=== PATIENT | female | born 1965 | race Caucasian/White ===

== ENCOUNTER 2024-10-18 20:20 | Emergency (ER) | payer OTHER ==
--- OUTSIDE RECORDS SUMMARY | 2024-10-18 20:26 | XMS REPORT | Continuity of Care Document ---
Author Name Unknown Address [address] [facility] [place] [address] [facility] Address [address] [facility] [place] [address] Care Team Providers Care Regional Climate Change Analyst Name Role Phone Shine QUINN, Bhavani Calero Primary Care [facility] TERRELL ROSA Attending Clinician Unavail able PLAB Attending Clinician Unavailable [id number] Attending Clinician Unavailable BHAVANI SALAS Attending Clinician Unavailable SONIDO WHEELER Attending Clinician Unavailable MD MOODY Attending Clinician Unavailab JAMMIE Ryoal Attending Clinician Unavailab PANCHO Fajardo Attending Clinician Unavailable LAB90 Attending Clinician Unavailable JEANCARLOS WEAVER Attending Clinician Unavailab JACKIE Reddy Attending Clinician Unavailable Jammie Tafoya MD Attending Clinician [phone] GINA LITTLE Attending Clinician Unavail able Terrell Rosa MD Attending Clinician [phone] Terry Veras MD Attending Clinician [phone] YUNIEL MEYER Attending Clinician Unav shelby [id number] Attending Clinician Unavailable CHERIE PATEL Attending Clinician Unavailable Pancho Mendez DO Attending Clinician [phone] TERRY VERAS Attending Clinician Unavailable [id number] Attending Clinician Unavailable LAB39 Attending Clinician Unavailable GRIFFIN LAY Attending Clinician Unavailab le Payers Payer Name Policy Type Policy Number Effective Date Expirati on Date Source [facility] 2019 9 [id number] 2021 00:00:00 Problems Condition Name Condition Details Condition Category Status Onset Date Resolution Date Last Treatment Date Treating Clinician Comments Source Solar purpura Solar purpura Disease Active 19 00:00: 00 Francheska Choudhury - Externa l 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 R medial back at T3 Francheska Choudhury - Externa l Other specified hypothyroi dism Other specified hypothyroi dism Disease Active 03-15 00:00: 00 Francheska Choudhury - Externa l Hypercalce joey Hypercalce joey Disease Active 03-15 00:00: 00 Francheska Choudhury - Externa l Vitamin D deficiency Vitamin D deficiency Disease Active 03-15 00:00: 00 Francheska Choudhury - Externa l Osteopenia of spine Osteopenia of spine Disease Active 03-15 00:00: 00 Francheska Choudhury - Externa l Allergies, Adverse Reactions, Alerts Allergy Name Allergy Type Status Severity Reaction(s) Onset Date Inactive Date Treating Clinician Comments Source septocai ne [Other] Propensi ty to adverse reaction s Active PALPITATIONS 2013-03 00:00: 00 This medicatio n was injected into patient's gums and caused her to have severe shaking and rapid heart beat. Francheska Ley Externa radha Codeine Propensi ty to adverse reaction s to drug Active Other 10-07 00:00: 00 Gastric upset Francheska Ley Externa l Penicill ins Propensi ty to adverse reaction s to drug Active Hives 10-07 00:00: 00 Francheska Choudhury Penicill ins Propensi ty to adverse reaction s to drug Active Hives 10-07 00:00: 00 Francheska Choudhury - Externa l Codeine Propensi ty to adverse reaction s to drug Active Other 10-07 00:00: 00 Gastric upset Francheska Choudhury - Externa l Social History Social Habit Start Date Stop Date Quantity Comments Source Gender identity Hoa filiberto Choudhury - External Sexual orientation Severino amlagon Macey - External ASSERTION Not Francheska Choudhury - External History of Occupation Francheska Choudhury - External Exposure to SARS-CoV-2 (event) Not sure Francheska eduardo Alcoholic beverage intake 2024-09-15 00:00:00 2024-09-15 00:00:00 Current non-drinker of alcohol (finding) Francheska Choudhury - External Alcohol intake 2023-06-05 00:00:00 2023-06-05 00:00:00 Current non-drinker of alcohol (finding) Francheska Choudhury - External History of Social function 2022-12-05 00:00:00 2022-12-05 00:00:00 Francheska Choudhury - External Tobacco use and exposure 2014-01-12 00:00:00 2014-01-12 00:00:00 Smokeless tobacco non-user Francheska Choudhury - External Sex 2012-03-27 19:38:59 2012-03-27 19:38:59 Female (finding) Francheska Choudhury - External Sex assigned at 1965 00:00:00 1965 00:00:00 Francheska Choudhury - External Smoking Status Start Date Stop Date Source Never smoked tobacco Francheska Choudhury - External Medications Ordered Medication Name Filled Medication Name Start Date Stop Date Current Medication? Ordering Clinician Indication Dosage Frequency Signature (SIG) Comments Components Source Ibuprofen 200 MG oral Capsule 09-15 13:57: 15 Yes 200mg Q.25D Take 1 capsule (200 mg total) by mouth every 6 hours as needed for pain. Francheska Cunningham l Otezla 30 MG oral Tablet 08-25 00:00: 00 Yes [id number] TAKE 1 TABLET TWO TIMES A DAY Francheska garcia Doxycycline Hyclate 100 MG oral Tablet 08-14 00:00: 00 09-15 00:00 :00 No [id number] 100mg Q.5D Take 1 tablet (100 mg total) by mouth 2 times daily. Francheska garcia Ibuprofen 200 MG oral Capsule 08-11 15:04: 58 Yes 200mg Q.25D Take 1 capsule (200 mg total) by mouth every 6 hours as needed for pain. Francheska garcia Albuterol HFA 108 (90 Base) MCG/ACT IN AERS 08-11 00:00: 00 Yes [id number] 2{puff} Q.25D Inhale 2 puffs into the lungs every 6 hours as needed for wheezing. Francheska garcia Pseudoeph-B romphen-DM 30-2-10 MG/5ML oral Syrup 08-11 00:00: 00 Yes [id number] 10mL Q.25D Take 10 mL by mouth 4 times daily as needed. Francheska garcia Azithromyci n 250 MG oral Tablet 08-11 00:00: 00 08-17 04:59 :00 Yes [id number] Take 2 tablets by mouth on day 1 then 1 tablet by mouth daily for 4 days thereafter .. Francheska garcia hydroCHLORO thiazide 12.5 MG oral Tablet - 00:00: 00 Yes [id number] 12.5mg QD Take 1 tablet by mouth once daily Francheska garcia Methylpredn isolone Acetate (DEPO-MEDRO L) [80 mg/ml] 06-10 10:18: 38 No [id number] 80mg 80 mg, intramuscu lar, ONCE, On Sun06/10/24 at 1015, For 1 dose Francheska garcia Ibuprofen 200 MG oral Capsule 06-10 10:05: 19 Yes 200mg Q.25D Take 1 capsule (200 mg total) by mouth every 6 hours as needed for pain. Francheska garcia Triamcinolo ne Acetonide 0.1 % mouth/throa t Paste 06-10 00:00: 00 Yes [id number] Apply to oral lesions BID. Patient has many lesions and uses much. Please dispense 2 tubes each refill. Francheska garcia Ibuprofen 200 MG oral Capsule 1-14 10:30: 04 Yes 200mg Q.25D Take 1 capsule (200 mg total) by mouth every 6 hours as needed for pain. Francheska Hawleya radha Ibuprofen 200 MG oral Capsule 2023-03 2-02 10:10: 21 Yes 200mg Q.25D Take 1 capsule (200 mg total) by mouth every 6 hours as needed for pain. Francheska garcia Ibuprofen 200 MG oral Capsule 2023-03 0- 10:01: 36 Yes 200mg Q.25D Take 1 capsule (200 mg total) by mouth every 6 hours as needed for pain. Francheska garcia Colchicine 0.6 MG oral Tablet 2023-03 0 00:00: 00 Yes [id number] .6mg QD Take 1 tablet (0.6 mg total) by mouth daily. Francheska garcia predniSONE (DELTASONE) 5 MG oral Tablet 2023-03 00:00: 00 Yes [id number] 5mg QD Take 1 tablet (5 mg total) by mouth daily. Francheska garcia Triamcinolo ne Acetonide 0.1 % mouth/throa t Paste 2023-03 0 00:00: 00 06-10 00:00 :00 No [id number] Apply to oral lesions BID. Patient has many lesions and uses much. Please dispense 2 tubes each refill. Francheska garcia SERVICING MANAGER Thyroid 90 MG oral Tablet 19 00:00: 00 Yes [id number] 90mg QD Take 1 tablet by mouth once daily Francheska garcia Colchicine 0.6 MG oral Tablet 09-09 00:00: 00 12-10 00:00 :00 No [id number] .6mg QD Take 1 tablet (0.6 mg total) by mouth daily. Francheska garcia predniSONE (DELTASONE) 5 MG oral Tablet 09-09 00:00: 00 12-10 00:00 :00 No [id number] 5mg QD Take 1 tablet (5 mg total) by mouth daily. Francheska garcia Otezla 30 MG oral Tablet 09-03 00:00: 00 Yes [id number] TAKE 1 TABLET TWO TIMES A DAY Francheska garcia hydroCHLORO thiazide 12.5 MG oral Tablet -14 00:00: 00 Yes [id number] 12.5mg QD Take 1 tablet (12.5 mg total) by mouth daily. Francheska garcia Lidocaine HCl (Lidocaine Viscous HCl) 2 % mouth/throa t Solution 07-23 00:00: 00 Yes [id number] 15 ml swish and spit every 3 hours as needed for throat pain. Francheska garcia Ibuprofen 200 MG oral Capsule 06-04 10:11: 04 Yes 200mg Q.25D Take 1 capsule (200 mg total) by mouth every 6 hours as needed for pain. Francheska garcia Ibuprofen 200 MG oral Capsule 05-28 13:29: 14 Yes 200mg Q.25D Take 1 capsule (200 mg total) by mouth every 6 hours as needed for pain. Francheska garcia Tretinoin 0.025 % apply externally Cream 05-28 00:00: 00 Yes [id number] Apply pea sized amount to face qhs for skin texture starting gradually. (For cosmesis). Francheska garcia predniSONE (DELTASONE) 5 MG oral Tablet 05-24 00:00: 00 Yes [id number] 5mg Take 1 tablet (5 mg total) by mouth daily. Francheska garcia Colchicine 0.6 MG oral Tablet 05-24 00:00: 00 Yes [id number] .6mg Take 1 tablet (0.6 mg total) by mouth daily. Francheska garcia Triamcinolo ne Acetonide 0.1 % mouth/throa t Paste 2022-03 208 00:00: 00 12-10 00:00 :00 No [id number] Apply to oral lesions BID. Patient has many lesions and uses much. Please dispense 2 tubes each refill. Francheska garcia Cyanocobala min (VITAMIN B-12) 100 MCG oral Tab 2022-03 15:06: 33 12-13 00:00 :00 No 100ug Take 1 tablet (100 mcg total) by mouth daily. Francheska garcia Ibuprofen 200 MG oral Capsule 2022-03 14:28: 15 Yes 200mg Q.25D Take 1 capsule (200 mg total) by mouth every 6 hours as needed for pain. Francheska garcia Cyclobenzap rine HCl 10 MG oral Tablet 12-08 00:00: 00 12-13 00:00 :00 No 10mg [id number] 3D Take 1 tablet (10 mg total) by mouth every 8 hours as needed. Francheska garcia Ketorolac Tromethamin e 10 MG oral Tablet 12-08 00:00: 00 12-13 00:00 :00 No TAKE 1 TABLET BY MOUTH EVERY 4 TO 6 HOURS NEEDED FOR PAIN FOR 3 DAYS. DO NOT EXCEED 4 DOSES IN 24 HOURS Francheska garcia Tamsulosin HCl 0.4 MG oral Capsule 12-08 00:00: 00 12-13 00:00 :00 No 1{capsu le} Take 1 capsule (0.4 mg total) by mouth at bedtime. Francheska garcia predniSONE (DELTASONE) 5 MG oral Tablet 12-05 00:00: 00 Yes [id number] 5mg Take 1 tablet (5 mg total) by mouth daily. Francheska garcia Colchicine 0.6 MG oral Tablet 12-05 00:00: 00 Yes [id number] .6mg Take 1 tablet (0.6 mg total) by mouth daily. Francheska garcia Thyroid (SERVICING MANAGER Thyroid) 90 MG oral Tablet 12-05 00:00: 00 Yes [id number] 90mg Take 1 tablet (90 mg total) by mouth daily. Francheska garcia Naproxen 500 MG oral Tablet 9-11 00:00: 00 Yes 500mg Q.5D Take 1 tablet (500 mg total) by mouth in the morning and 1 tablet (500 mg total) in the evening. Francheska garcia Triamcinolo ne Acetonide 0.1 % mouth/throa t Paste 8-05 00:00: 00 Yes [id number] Apply to oral lesions BID. Patient has many lesions and uses much. Please dispense 2 tubes each refill Francheska garcia Otezla 30 MG oral Tablet 7-24 00:00: 00 Yes [id number] TAKE 1 TABLET 2 TIMES A DAY Francheska garcia Cyanocobala min (VITAMIN B-12) 100 MCG oral Tab 07-20 16:00: 36 Yes 100ug Take 1 tablet (100 mcg total) by mouth daily Francheska garcia Ibuprofen 200 MG oral Capsule 07-20 16:00: 36 Yes 200mg Q.25D Take 1 capsule (200 mg total) by mouth every 6 hours as needed for pain Francheska garcia Cyanocobala min (VITAMIN B-12) 100 MCG oral Tab 05-30 10:10: 22 Yes 100ug Take 100 mcg by mouth daily Francheska garcia Ibuprofen 200 MG oral Capsule 05-30 10:10: 22 Yes 200mg Q.25D Take 200 mg by mouth every 6 hours as needed for pain Francheska garcia predniSONE (DELTASONE) 5 MG oral Tablet 05-30 00:00: 00 Yes [id number] 5mg Take 1 tablet (5 mg total) by mouth daily Francheska garcia Colchicine 0.6 MG oral Tablet 05-30 00:00: 00 Yes [id number] .6mg Take 1 tablet (0.6 mg total) by mouth daily Francheska Ley Externjyoti garcia Triamcinaparna ne Acetonide 0.1 % mouth/throa t Paste -21 00:00: 00 Yes [id number] Apply to oral lesions BID. Patient has many lesions and uses much. Please dispense 2 tubes each refill Francheska garcia SERVICING MANAGER Thyroid 90 MG oral Tablet 2- 00:00: 00 Yes Take 1 tablet by mouth once daily Francheska Hawleya radha hydroCHLORO thiazide 12.5 MG oral Tablet 2- 00:00: 00 Yes [id number] Take 1 tablet by mouth once daily Francheska garcia Colchicine 0.6 MG oral Tablet 2021-03 00:00: 00 05-30 00:00 :00 No [id number] Take 1 tablet by mouth once daily Francheska garcia predniSONE 5 MG oral Tablet 2021-03 00:00: 00 05-30 00:00 :00 No [id number] Take 1 tablet by mouth once daily Francheska Hawleya radha Cyanocobala min (VITAMIN B-12) 100 MCG oral Tab 2021-03 10:41: 55 Yes 100ug Take 100 mcg by mouth daily Francheska garcia Ibuprofen 200 MG oral Capsule 2021-03 10:41: 55 Yes 200mg Q.25D Take 200 mg by mouth every 6 hours as needed for pain Francheska garcia hydroCHLORO thiazide 12.5 MG oral Tablet 2021-03 0 00:00: 00 Yes [id number] Take 1 tablet by mouth once daily Francheska garcia Triamcinolo ne Acetonide 0.1 % mouth/throa t Paste 11-29 00:00: 00 Yes [id number] Apply to oral lesions BID. Patient has many lesions and uses much. Please dispense 2 tubes each refill Francheska garcia predniSONE 5 MG oral Tablet 8- 00:00: 00 Yes [id number] Take 1 tablet by mouth once daily Francheska garcia Apremilast (Otezla) 30 MG oral Tablet 8-04 00:00: 00 Yes [id number] 30mg Take 30 mg by mouth 2 times daily Francheska garcia SERVICING MANAGER Thyroid 90 MG oral Tablet 07-20 00:00: 00 Yes Take 1 tablet by mouth once daily Francheska Kramerkenzieneva - Externa l Cyanocobala min (VITAMIN B-12) 100 MCG oral Tab 07-11 10:40: 26 Yes 100ug Take 100 mcg by mouth daily Francheska Choudhury Zinc 10 MG mouth/throa t Lozenge 07-11 10:40: [address] in the mouth or throat Francheska Kramerkenzieneva Ibuprofen 200 MG oral Capsule 07-11 10:40: 26 Yes 200mg Q.25D Take 200 mg by mouth every 6 hours as needed for pain Francheska Sealesha VITAMIN D OR 07-11 10:40: 26 Yes Take by mouth Francheska kenzieneva predniSONE 5 MG oral Tablet 16 00:00: 00 Yes [id number] 5mg Take 1 tablet (5 mg total) by mouth daily Francheska Sealesha hydroCHLORO thiazide 12.5 MG oral Tablet 14 00:00: 00 Yes [id number] Take 1 tablet by mouth once daily Francheska alesha Methylpredn isolone Acetate (DEPO-MEDRO L) [40 mg/mL] 05-24 15:15: 00 05-24 15:17 :00 No [id number] 60mg Francheska Choudhury Cyanocobala min (VITAMIN B-12) 100 MCG oral Tab 05-24 10:04: 54 Yes 100ug Take 100 mcg by mouth daily Francheska Kramerkenzieneva Zinc 10 MG mouth/throa t Lozenge 05-24 10:04: [address] in the mouth or throat Francheska Kramerkenzieneva Ibuprofen 200 MG oral Capsule 05-24 10:04: 54 Yes 200mg Q.25D Take 200 mg by mouth every 6 hours as needed for pain Francheska Choudhury VITAMIN D OR 05-24 10:04: 54 Yes Take by mouth Francheska Sekenzieneva Triamcinolo ne Acetonide 0.1 % mouth/throa t Paste 05-24 00:00: 00 Yes [id number] Apply to oral lesions BID. Patient has many lesions and uses much. Please dispense 2 tubes each refill Francheska Choudhury Cyanocobala min (VITAMIN B-12) 100 MCG oral Tab 04-20 08:37: 30 Yes 100ug Take 100 mcg by mouth daily Francheska Choudhury Zinc 10 MG mouth/throa t Lozenge 04-20 08:37: [address] in the mouth or throat Francheska Choudhury Ibuprofen (ADVIL) 200 MG oral Cap 04-20 08:37: 30 Yes 200mg Q6H Take 200 mg by mouth every 6 hours as needed for pain Francheska Choudhury VITAMIN D OR 04-20 08:37: 30 Yes Take by mouth Francheska Choudhury Colchicine (Colcrys) 0.6 MG oral Tablet 03-29 00:00: 00 Yes [id number] .6mg Take 1 tablet (0.6 mg total) by mouth daily Francheska garcia Mupirocin (BACTROBAN) 2 % apply externally Ointment 2020-03 00:00: 00 Yes Apply 2 times daily to affected areas for 2 weeks Francheska Choudhury Clindamycin HCl 300 MG oral Capsule 2020-03 00:00: 00 03-08 05:59 :00 No 300mg Take 1 capsule (300 mg total) by mouth 2 times daily for 7 days Francheska Carolinacobala min (VITAMIN B-12) 100 MCG oral Tab 2020-03 10:27: 57 Yes 100ug Take 100 mcg by mouth daily Francheska Choudhury Ibuprofen (ADVIL) 200 MG oral Cap 2020-03 10:27: 57 Yes 200mg Q6H Take 200 mg by mouth every 6 hours as needed for pain Francheska Choudhury Zinc 10 MG mouth/throa t Lozenge 2020-03 10:27: [address] in the mouth or throat Francheska Choudhury Cyanocobala min (VITAMIN B-12) 100 MCG oral Tab 2020-03 10:26: 48 Yes 100ug Take 100 mcg by mouth daily Francheska Choudhury Zinc 10 MG mouth/throa t Lozenge 2020-03 10:26: [address] in the mouth or throat Francheska Choudhury Ibuprofen 200 MG oral Capsule 2020-03 10:26: 48 Yes 200mg Q.25D Take 1 capsule (200 mg total) by mouth every 6 hours as needed for pain. Francheska Choudhury - Externa l Thyroid ([place] Thyroid) 90 MG oral Tablet 2020-03 00:00: 00 Yes 90mg Take 1 tablet (90 mg total) by mouth daily Francheska Choudhury Cyanocobala min (VITAMIN B-12) 100 MCG oral Tab 2020-03 08:50: 50 Yes 100ug Take 100 mcg by mouth daily Franchseka Choudhury Zinc 10 MG mouth/throa t Lozenge 2020-03 08:50: [address] in the mouth or throat Francheska Choudhury Ibuprofen (ADVIL) 200 MG oral Cap 2020-03 08:50: 50 Yes 200mg Q6H Take 200 mg by mouth every 6 hours as needed for pain Francheska Choudhury Cyanocobala min (VITAMIN B-12) 100 MCG oral Tab 2020-03 14:07: 05 Yes 100ug Take 100 mcg by mouth daily Francheska Choudhury Zinc 10 MG mouth/throa t Lozenge 2020-03 14:07: [address] in the mouth or throat Francheska Choudhury Ibuprofen (ADVIL) 200 MG oral Cap 2020-03 14:07: 05 Yes 200mg Q6H Take 200 mg by mouth every 6 hours as needed for pain Francheska Choudhury predniSONE 5 MG oral Tablet 2020-03 00:00: 00 Yes [id number] 5mg Take 1 tablet (5 mg total) by mouth daily Francheska Choudhury Cyanocobala min (VITAMIN B-12) 100 MCG oral Tab 11-22 12:55: 39 Yes 100ug Take 100 mcg by mouth daily Francheska Choudhury Ibuprofen (ADVIL) 200 MG oral Cap 11-22 12:55: 39 Yes 200mg Q6H Take 200 mg by mouth every 6 hours as needed for pain Francheska Choudhury Zinc 10 MG mouth/throa t Lozenge 11-22 12:55: [address] in the mouth or throat Francheska Choudhury hydroCHLORO thiazide 12.5 MG oral Tablet 2021-0 6-29 00:00: 00 Yes [id number] Take 1 tablet by mouth once daily Francheska Choudhury Apremilast (Otezla) 30 MG oral Tablet 6-15 00:00: 00 Yes [id number] 30mg Take 30 mg by mouth 2 times daily Francheska Choudhury predniSONE 5 MG oral Tablet 3-29 00:00: 00 Yes [id number] 5mg Take 1 tablet (5 mg total) by mouth daily Francheska Choudhury methylPREDN ISolone (Medrol) 4 MG oral Tablet Therapy Pack 2- 00:00: 00 11-22 00:00 :00 No 1{packa ge} Take 1 package by mouth See Admin Instructio ns Use as directed. Francheska Choudhury Thyroid ([place] Thyroid) 120 MG oral Tab 1- 00:00: 00 Yes [id number] 1{tbl} Take 1 tablet by mouth daily Francheska Choudhury Colchicine (Colcrys) 0.6 MG oral Tab 2019-03 00:00: 00 Yes [id number] .6mg Take 1 tablet (0.6 mg total) by mouth daily Francheska Choudhury Triamcinolo ne Acetonide 0.1 % mouth/throa t Paste 2019-03 004 00:00: 00 01-11 00:00 :00 No [id number] APPLY TO ORAL ULCERS TWICE DAILY Francheska Choudhury - Externa l Benadryl 30 mL, Lidocaine Viscous HCl 30 mL, Nystatin 30 mL, KENALOG 40 mg custom mouthwash 8-31 00:00: 00 11-22 00:00 :00 No 5mL Swish and spit 5 mL 3 times daily Francheska Choudhury Valacyclovi r HCl 1 g oral Tab -06 00:00: 00 11-22 00:00 :00 No [id number] 2 tablets Q12hrs for 2-3 days for cold sore. Francheska Choudhury Baclofen 20 MG oral Tab 7-06 00:00: 00 11-22 00:00 :00 No [id number] 20mg Take 1 tablet (20 mg total) by mouth 3 times daily As needed for low back muscle spasm Francheska Choudhury Acetaminoph en 650 MG oral Tab CR 7-06 00:00: 00 11-22 00:00 :00 No [id number] 2 tablets every 8 hours as needed for pain Francheska Choudhury Lidocaine HCl (LIDOCAINE VISCOUS HCL) 2 % mouth/throa t Solution 6-16 00:00: 00 11-22 00:00 :00 No [id number] Swish and spit 10mL 3-4 times daily as needed for pain. Francheska Choudhury Immunizations Ordered Immunization Name Filled Immunization Name Date Status Comments Source Tdap- (Boostrix, Adacel) 2016-12-01 00:00:00 Completed Francheska Choudhury Tdap- (Boostrix, Adacel) 2016-12-01 00:00:00 Completed Francheska Choudhury Tdap- (Boostrix, Adacel) 2016-12-01 00:00:00 Completed Francheska Choudhury Tdap- (Boostrix, Adacel) 2016-12-01 00:00:00 Completed Francheska Choudhury Tdap- (Boostrix, Adacel) 2016-12-01 00:00:00 Completed Francheska Choudhury Tdap- (Boostrix, Adacel) 2016-12-01 00:00:00 Completed Francheska Choudhury - External Tdap- (Boostrix, Adacel) 2016-12-01 00:00:00 Completed Francheska Choudhury - External Tdap- (Boostrix, Adacel) 2016-12-01 00:00:00 Completed Francheska Kramerybold - External Tdap- (Boostrix, Adacel) 2016-12-01 00:00:00 Completed Francheska Choudhury Tdap- (Boostrix, Adacel) 2016-12-01 00:00:00 Completed Francheska Choudhury Tdap- (Boostrix, Adacel) 2016-12-01 00:00:00 Completed Francheska Choudhury Tdap- (Boostrix, Adacel) Unknown Completed Francheska Choudhury - External Tdap- (Boostrix, Adacel) Unknown Completed Francheska Choudhury - External Tdap- (Boostrix, Adacel) Unknown Completed Francheska Kramerybold - External Tdap- (Boostrix, Adacel) Unknown Completed Francheska Seybold - External Tdap- (Boostrix, Adacel) Unknown Completed Francheska Seybold - External Tdap- (Boostrix, Adacel) Unknown Completed Francheska Seybold - External Tdap- (Boostrix, Adacel) Unknown Completed Francheska Seybold - External Tdap- (Boostrix, Adacel) Unknown Completed Francheska Seybold - External Tdap- (Boostrix, Adacel) Unknown Completed Francheska Seybold - External Tdap- (Boostrix, Adacel) Unknown Completed Francheska Seybold - External Vital Signs Vital Name Observation Time Observation Value Comments S ource Systolic blood pressure 2024-09-15 15:05:00 112 mm[Hg] Francheska Seybold - External Diastolic blood pressure 2024-09-15 15:05:00 68 mm[Hg] Francheska Seybold - External Heart rate 2024-09-15 15:05:00 84 /min Francheska Seybold - External Body temperature 2024-09-15 15:05:00 36.61 Sarita Francheska Seybold - External Respiratory rate 2024-09-15 15:05:00 14 /min Francheska Seybold - External Body height 2024-09-15 15:05:00 156.2 cm Francheska Seybold - External Body weight 2024-09-15 15:05:00 61.236 kg w/shoes Francheska Seybold - External BMI 2024-09-15 15:05:00 25.09 kg/m2 Francheska Seybold - External Oxygen saturation in Arterial blood by Pulse oximetry 2024-09-15 15:05:00 97 /min Francheska Seybold - External Systolic blood pressure 2024-08-11 19:59:00 100 mm[Hg] Francheska Seybold - External Diastolic blood pressure 2024-08-11 19:59:00 68 mm[Hg] Francheska Seybold - External Heart rate 2024-08-11 19:59:00 77 /min Francheska Seybold - External Body temperature 2024-08-11 19:59:00 36.56 Sarita Francheska Seybold - External Respiratory rate 2024-08-11 19:59:00 15 /min Francheska Seybold - External Body height 2024-08-11 19:59:00 156.2 cm Francheska Banksold - External Body weight 2024-08-11 19:59:00 61.689 kg Francheska Seybold - External BMI 2024-08-11 19:59:00 25.28 kg/m2 Francheska Seybold - External Oxygen saturation in Arterial blood by Pulse oximetry 2024-08-11 19:59:00 98 /min Francheska Seybold - External Systolic blood pressure 2024-06-10 15:05:00 105 mm[Hg] Francheska Seybold - External Diastolic blood pressure 2024-06-10 15:05:00 60 mm[Hg] Francheska Seybold - External Heart rate 2024-06-10 15:05:00 72 /min rFancheska Seybold - External Respiratory rate 2024-06-10 15:05:00 16 /min Francheska Kramerybold - External Body height 2024-06-10 15:05:00 156.2 cm Francheska Seybold - External Body weight 2024-06-10 15:05:00 62.143 kg Francheska Seybold - External BMI 2024-06-10 15:05:00 25.47 kg/m2 Francheska Seybold - External Body weight 2024-03-25 16:49:00 63.05 kg Francheska Seybold - External BMI 2024-03-25 16:49:00 25.84 kg/m2 Francheska Seybold - External Body weight 2024-02-11 16:09:00 63.05 kg Francheska Seybold - External BMI 2024-02-11 16:09:00 25.84 kg/m2 Francheska Seybold - External Systolic blood pressure 2023-12-11 14:59:00 113 mm[Hg] Francheska Seybold - External Diastolic blood pressure 2023-12-11 14:59:00 66 mm[Hg] Francheska Seybold - External Heart rate 2023-12-11 14:59:00 72 /min Francheska Seybold - External Respiratory rate 2023-12-11 14:59:00 16 /min Francheska Kramerybold - External Body height 2023-12-11 14:59:00 156.2 cm Francheska Seybold - External Body weight 2023-12-11 14:59:00 63.504 kg Francheska Seybold - External BMI 2023-12-11 14:59:00 26.02 kg/m2 Francheska Seybold - External Systolic blood pressure 2023-07-24 19:22:00 108 mm[Hg] Francheska Seybold - External Diastolic blood pressure 2023-07-24 19:22:00 66 mm[Hg] Francheska Seybold - External Heart rate 2023-07-24 19:22:00 84 /min Francheska Seybold - External Body temperature 2023-07-24 19:22:00 36.78 Sarita Francheska Seybold - External Respiratory rate 2023-07-24 19:22:00 16 /min Francheska Seybold - External Body height 2023-07-24 19:22:00 157.5 cm Francheska Seybold - External Body weight 2023-07-24 19:22:00 62.596 kg w/shoes Francheska Seybold - External BMI 2023-07-24 19:22:00 25.24 kg/m2 Francheska Seybold - External Systolic blood pressure 2023-06-05 15:09:00 115 mm[Hg] Francheska Seybold - External Diastolic blood pressure 2023-06-05 15:09:00 73 mm[Hg] Francheska Seybold - External Heart rate 2023-06-05 15:09:00 74 /min Francheska Seybold - External Respiratory rate 2023-06-05 15:09:00 16 /min Francheska Seybold - External Body height 2023-06-05 15:09:00 156.2 cm Francheska Seybold - External Body weight 2023-06-05 15:09:00 60.782 kg Francheska Seybold - External BMI 2023-06-05 15:09:00 24.91 kg/m2 Francheska Seybold - External Body weight 2023-05-29 18:28:00 62.143 kg Francheska Seybold - External BMI 2023-05-29 18:28:00 25.06 kg/m2 Francheska Seybold - External Systolic blood pressure 2022-12-13 19:23:00 100 mm[Hg] Francheska Seybold - External Diastolic blood pressure 2022-12-13 19:23:00 60 mm[Hg] Francheska Seybold - External Heart rate 2022-12-13 19:23:00 70 /min Francheska Seybold - External Body temperature 2022-12-13 19:23:00 37.11 Sarita Francheska Seybold - External Respiratory rate 2022-12-13 19:23:00 18 /min Francheska Seybold - External Body height 2022-12-13 19:23:00 157.5 cm Francheska Seybold - External Body weight 2022-12-13 19:23:00 62.766 kg Francheska Seybold - External BMI 2022-12-13 19:23:00 25.31 kg/m2 Francheska Seybold - External Oxygen saturation in Arterial blood by Pulse oximetry 2022-12-13 19:23:00 99 /min Francheska Seybold - External Systolic blood pressure 2022-07-20 20:56:00 110 mm[Hg] Francheska Seybold - External Diastolic blood pressure 2022-07-20 20:56:00 72 mm[Hg] Francheska Seybold - External Heart rate 2022-07-20 20:56:00 74 /min Francheska Seybold - External Body temperature 2022-07-20 20:56:00 37 Sarita Francheska Seybold - External Respiratory rate 2022-07-20 20:56:00 14 /min Francheska Seybold - External Body height 2022-07-20 20:56:00 157.5 cm measured w/o shoes Francheska Seybold - External Body weight 2022-07-20 20:56:00 64.411 kg w/shoes Francheska Seybold - External BMI 2022-07-20 20:56:00 25.97 kg/m2 Francheska Seybold - External Oxygen saturation in Arterial blood by Pulse oximetry 2022-07-20 20:56:00 98 /min Francheska Seybold - External Systolic blood pressure 2022-05-30 15:08:00 125 mm[Hg] Francheska Seybold - External Diastolic blood pressure 2022-05-30 15:08:00 69 mm[Hg] Francheska Seybold - External Heart rate 2022-05-30 15:08:00 94 /min Francheska Seybold - External Body temperature 2022-05-30 15:08:00 36.61 Sarita Francheska Banksold - External Respiratory rate 2022-05-30 15:08:00 16 /min Francheska Kramerybold - External Body height 2022-05-30 15:08:00 156.2 cm Francheska Kramerybold - External Body weight 2022-05-30 15:08:00 65.772 kg Francheska Kramerybold - External BMI 2022-05-30 15:08:00 26.95 kg/m2 Francheska Kramerybold - External Body weight 2022-01-11 15:30:00 65.227 kg Francheska Seybold - External BMI 2022-01-11 15:30:00 26.73 kg/m2 Francheska Kramerybold - External Body weight 2021-07-11 15:39:00 61.961 kg Francheska Seybold BMI 2021-07-11 15:39:00 25.39 kg/m2 Francheska Kramerybold Systolic blood pressure 2021-05-24 15:03:00 105 mm[Hg] Francheska Seybold Diastolic blood pressure 2021-05-24 15:03:00 67 mm[Hg] Francheska Kramerybold Heart rate 2021-05-24 15:03:00 69 /min Francheska Seybold Respiratory rate 2021-05-24 15:03:00 16 /min Francheska Kramerybold Body height 2021-05-24 15:03:00 156.2 cm Francheska Kramerybneva Body weight 2021-05-24 15:03:00 60.328 kg Francheska Kramerybneva BMI 2021-05-24 15:03:00 24.72 kg/m2 Francheska Seybold Systolic blood pressure 2021-04-20 14:32:00 124 mm[Hg] Francheska Seybold Diastolic blood pressure 2021-04-20 14:32:00 58 mm[Hg] Francheska Seybold Heart rate 2021-04-20 14:32:00 68 /min Francheska Kramerybold Body temperature 2021-04-20 14:32:00 36.72 Sarita Francheska Kramerybold Respiratory rate 2021-04-20 14:32:00 14 /min Francheska Kramerybold Body height 2021-04-20 14:32:00 156.2 cm Francheska Seybold Body weight 2021-04-20 14:32:00 60.328 kg without shoes Francheska Kramerybneva BMI 2021-04-20 14:32:00 24.72 kg/m2 Francheska Seybold Systolic blood pressure 2021-02-28 18:48:00 100 mm[Hg] Francheska Seybold Diastolic blood pressure 2021-02-28 18:48:00 69 mm[Hg] Francheska Seybold Systolic blood pressure 2021-02-07 16:25:00 109 mm[Hg] Francheska Seybold Diastolic blood pressure 2021-02-07 16:25:00 67 mm[Hg] Francheska Kramerybold Heart rate 2021-02-07 16:25:00 81 /min Francheska Kramerybold Body temperature 2021-02-07 16:25:00 36.72 Sarita Francheska Kramerybold Respiratory rate 2021-02-07 16:25:00 20 /min Francheska Kramerybneva Body height 2021-02-07 16:25:00 156.2 cm Francheska Kramerybneva Body weight 2021-02-07 16:25:00 63.322 kg Francheska Seybold BMI 2021-02-07 16:25:00 25.95 kg/m2 Francheska Seybold BMI 2021-01-26 14:49:00 24.91 kg/m2 Francheska Seybold Systolic blood pressure 2021-01-26 14:49:00 95 mm[Hg] Francheska Seybold Diastolic blood pressure 2021-01-26 14:49:00 56 mm[Hg] Francheska Kramerybold Heart rate 2021-01-26 14:49:00 97 /min Francheska Kramerybold Body temperature 2021-01-26 14:49:00 36.56 Sarita Francheska Kramerybold Respiratory rate 2021-01-26 14:49:00 16 /min Francheska Kramerybold Body height 2021-01-26 14:49:00 156.2 cm Francheska Kramerybold Body weight 2021-01-26 14:49:00 60.782 kg Francheska Kramerybneva Body weight 2021-01-10 19:06:00 62.143 kg Francheska Kramerybold BMI 2021-01-10 19:06:00 25.06 kg/m2 Francheska Seybold Systolic blood pressure 2020-11-22 17:56:00 98 mm[Hg] Francheska Choudhury Diastolic blood pressure 2020-11-22 17:56:00 64 mm[Hg] Francheska Choudhury Heart rate 2020-11-22 17:56:00 64 /min Francheska Choudhury Respiratory rate 2020-11-22 17:56:00 16 /min Francheska Choudhury Body height 2020-11-22 17:56:00 157.5 cm Francheska Macey Body weight 2020-11-22 17:56:00 63.957 kg Francheska Macey BMI 2020-11-22 17:56:00 25.79 kg/m2 Francheska Choudhury Procedures Procedure Date / Time Performed Performing Clinicia n Source [facility] PATHOLOGY REPORT 2021-02-28 22:28:00 Antonio Veras in R Francheska Choudhury MAGNESIUM, SERUM 2021-01-26 15:28:00 Cherie Patel T4F 2021-01-26 15:28:00 Cherie Patel CMP14+CBC/D/PLT+TSH W/RFLX 2021-01-26 15:28:00 Cherie Patel ECG- ADULT 2021-01-26 15:00:36 Cherie Patel REFERRAL TO [facility] [place] 2021-01-25 00:00:00 Severino Tafoya Encounters Start Date/Time End Date/Time Encounter Type Admission Type Attending [facility] Care Department Encounter ID Source 2025-01-01 09:30:00 2025-01-01 09:30:00 Outpatient FRANCHESKA MAYFIELD [id number] Francheska Choudhury 2024-12-10 10:15:00 2024-12-10 10:15:00 Outpatient TERRELL ROSA [id number] Francheska Choudhury 2024-10-28 14:20:00 2024-10-28 14:20:00 Outpatient GEETHA MAYFIELD [id number] Francheska Choudhury 2024-10-28 09:00:00 2024-10-28 09:00:00 Outpatient FRANCHESKA FRANCHESKA [id number] Francheska Choudhury 2024-09-30 09:30:00 2024-09-30 09:30:00 Outpatient FRANCHESKASALINA MAYFIELD [id number] Francheska Choudhury 2024-09-15 11:10:00 2024-09-15 11:10:00 Outpatient [facility] FRANCHESKA MAYFIELD [id number] Francheska Choudhury 2024-09-15 10:00:00 2024-09-15 10:00:00 Outpatient BHAVANI SALAS FRANCHESKA [facility]FIELD [id number] Francheska Macey 2024-08-25 00:00:00 2024-08-25 00:00:00 Outpatient TERRELL ROSA [id number] Francheska [facility] 2024-08-19 00:00:00 2024-08-19 00:00:00 Outpatient SONIDO WHEELER [id number] Francheska Macey 2024-08-14 09:30:00 2024-08-14 09:30:00 Outpatient FRANCHESKA MAYFIELD [id number] Francheska Macey 2024-08-14 00:00:00 2024-08-14 00:00:00 Outpatient SONIDO WHEELER [id number] Francheska [facility] 2024-08-12 09:25:00 2024-08-12 09:25:00 Outpatient FRANCHESKA MAYFIELD [id number] Francheska neva 2024-08-12 00:00:00 2024-08-12 00:00:00 [facility] [id number] [facility]24-[facility]-12 00:00:00 2024-08-12 00:00:00 Outpatient SONIDO WHEELER [id number] [facility] 2024-08-12 00:00:00 2024-08-12 00:00:00 Outpatient MD FRANCHESKA PARK [id number] Francheska alesha 2024-08-11 14:30:00 2024-08-11 14:30:00 Outpatient SONIDO WHEELER [id number] Francheska Macey 2024-08-11 00:00:00 2024-08-11 00:00:00 Outpatient BHAVANI SALAS FRANCHESKA [facility] [id number] Francheska Choudhury 2024-07-20 00:00:00 2024-07-20 00:00:00 Outpatient BHAVANI SALAS FRANCHESKA FRANCHESKA [id number] Francheska Kramerybneva 2024-06-10 10:45:00 2024-06-10 10:45:00 Outpatient LAB47 FRANCHESKA MAYFIELD [id number] Francheska ybneva 2024-06-10 10:15:00 2024-06-10 10:15:00 Outpatient TERRELL ROSA [id number] Francheska Macey 2024-03-25 10:30:00 2024-03-25 10:30:00 Outpatient JAMMIE TAFOYA [id number] Francheska Macey 2024-03-17 00:00:00 2024-03-17 00:00:00 Outpatient TERRELL ROSA [id number] Francheska [facility] 2024-03-11 00:00:00 2024-03-11 00:00:00 Outpatient TERRELL ROSA [id number] Francheska ybneva 2024-02-11 09:45:00 2024-02-11 09:45:00 Outpatient JAMMIE TAFOYA [id number] Francheska Kramerybneva 2024-01-10 08:00:00 2024-01-10 08:00:00 Outpatient FRANCHESKA MAYFIELD [id number] Francheska ybneva 2023-12-11 10:45:00 2023-12-11 10:45:00 Outpatient LABBella MAYFIELD [id number] Francheska Seybneva 2023-12-11 10:15:00 2023-12-11 10:15:00 Outpatient TERRELL ROSA [id number] Francheska Seybneva 2023-12-03 10:00:00 2023-12-03 10:00:00 Outpatient JAMMIE TAFOYA [id number] [facility] 2023-10-27 00:00:00 2023-10-27 00:00:00 Outpatient BHAVANI SALAS FRANCHESKA [facility] [id number] Francheska ybneva 2023-09-10 00:00:00 2023-09-10 00:00:00 Outpatient TERRELL ROSA FRANCHESKA [facility] [id number] Francheska ybneva 2023-09-10 00:00:00 2023-09-10 00:00:00 Outpatient TERRELL ROSA FRANCHESKA [facility] [id number] Fracnheska ybneva 2023-09-04 00:00:00 2023-09-04 00:00:00 Outpatient ERA TERRELLSHASHANK [facility]FIELD [id number] Francheska ybneva 2023-08-01 00:00:00 2023-08-01 00:00:00 Outpatient ERNESTO SALASVENESSA MAYFIELD [id number] Francheska neva 2023-07-24 14:30:00 2023-07-24 14:30:00 Outpatient SHINE BHAVANI [facility] [id number] [facility] 2023-06-05 10:45:00 2023-06-05 10:45:00 Outpatient LAB47 FRANCHESKA MAYFIELD [id number] Francheska ybneva 2023-06-05 10:15:00 2023-06-05 10:15:00 Outpatient ERA TERRELL FRANCHESKA [facility] [id number] Francheska ybneva 2023-05-29 13:30:00 2023-05-29 13:30:00 Outpatient JAMMIE TAFOYA [id number] [facility] 2023-05-25 00:00:00 2023-05-25 00:00:00 Outpatient ROSA, TERRELL MAYFIELD [id number] Francheska ybneva 2023-05-25 00:00:00 2023-05-25 00:00:00 Outpatient ROSA, TERRELL MAYFIELD [id number] Francheska Seybold 2023-05-15 07:50:00 2023-05-15 07:50:00 Outpatient LAB47 [facility]ESKA [facility] [id number] [facility] 2023-05-06 00:00:00 2023-05-06 00:00:00 Outpatient BHAVANI SALAS FRANCHESKA [facility] [id number] Francheska Kramerybneva 2023-02-28 00:00:00 2023-02-28 00:00:00 Outpatient TERRELL ROSA FRANCHESKA [facility]FIELD [id number] Francheska Choudhury 2023-02-22 00:00:00 2023-02-22 00:00:00 Outpatient PANCHO MENDEZ FRACNHESKA [facility]FIELD [id number] Francheska Seybneva 2023-02-16 00:00:00 2023-02-16 00:00:00 Outpatient MELONIE ROSASHASHANK [facility] [id number] Francheska Sealesha 2023-02-16 00:00:00 2023-02-16 00:00:00 Outpatient MELONIE ROSASHASHANK [facility] [id number] Francheska Choudhury 2023-02-16 00:00:00 2023-02-16 00:00:00 Outpatient MELONIE ROSASHASHANK MAYFIELD [id number] Francheska Seybneva 2023-02-16 00:00:00 2023-02-16 00:00:00 Outpatient TERRELL ROSA FRANCHESKA [facility]FIELD [id number] Francheska Seybneva 2022-12-22 11:00:00 2022-12-22 11:00:00 Outpatient BHAVANI SALAS FRANCHESKA [facility] [id number] Francheska Seybneva 2022-12-13 15:40:00 2022-12-13 15:40:00 Outpatient TOM FRANCHESKA [facility] [id number] Francheska Seybold 2022-12-13 14:30:00 2022-12-13 14:30:00 Outpatient JEANCARLOS WEAVER [id number] Francheska Seybold 2022-12-13 00:00:00 2022-12-13 00:00:00 Outpatient JACKIE PHILLIPS [id number] Francheska Seybold 2022-12-05 10:00:00 2022-12-05 10:00:00 Outpatient ERA TERRELL MAYFIELD [id number] Francheska Seybold 2022-10-14 00:00:00 2022-10-14 00:00:00 Outpatient TERRELL ROSA FRANCHESKA [facility]FIELD [id number] Francheska rKamerneva 2022-10-13 00:00:00 2022-10-13 00:00:00 Outpatient TERRELL ROSA FRANCHESKA [facility] [id number] Francheska Kramerneva 2022-10-01 00:00:00 2022-10-01 00:00:00 Outpatient ERA TERRELL MAYFIELD [id number] Francheska [facility] 2022-07-20 16:00:00 2022-07-20 16:00:00 Outpatient BHAVANI SALAS FRANCHESKA [facility] [id number] Francheska [facility] 2022-05-30 10:45:00 2022-05-30 10:45:00 Outpatient LISA FRANCHESKA MAYFIELD [id number] Francheska [facility] 2022-05-30 10:15:00 2022-05-30 10:15:00 [id number] [facility] 08:20:00 2022-04-28 08:20:00 Outpatient LABBella FRANCHESKA MAYFIELD [id number] Francheska [facility] 2022-04-16 00:00:00 2022-04-16 00:00:00 Outpatient VANESSA PANCHO FRANCHESKA [facility]FIELD [id number] Francheska [facility] 2022-02-08 00:00:00 2022-02-08 00:00:00 Outpatient PANCHO MENDEZ [id number] Francheska [facility] 2022-01-27 00:00:00 2022-01-27 00:00:00 Outpatient VANESSA PANCHO [facility]KA [facility] [id number] [facility] 2022-01-11 10:15:00 2022-01-11 10:15:00 Outpatient JAMMIE TAFOYA [id number] [facility] 2021-11-29 10:00:00 2021-11-29 10:00:00 Outpatient TERRELL ROSA [id number] Francheska Seybneva 2021-10-13 00:00:00 2021-10-13 00:00:00 Outpatient TERRELL ROSA [id number] Francheska Choudhury 2021-10-13 00:00:00 2021-10-13 00:00:00 Outpatient TERRELL ROSA FRANCHESKA MAYFIELD [id number] Francheska Choudhury 2021-07-11 10:15:00 2021-07-11 10:30:00 Office Visit Jammie Tafoya MAUREEN [id number] [id number] Francheska Choudhury 2021-06-01 15:00:00 2021-06-01 15:00:00 Outpatient FRANCHESKA MAYFIELD [id number] Francheska Macey 2021-06-01 14:40:00 2021-06-01 14:40:00 Outpatient FRANCHESKA MAYFIELD [id number] Francheska Macey 2021-05-25 13:20:00 2021-05-25 13:20:00 Outpatient GINA LITTLE [id number] Francheska Macey 2021-05-24 10:00:00 2021-05-24 10:15:00 Office Visit Terrell Rosa MAUREEN [id number] Francheska Choudhury 2021-05-04 00:00:00 2021-05-04 00:00:00 Outpatient MD FRANCHESKA PARK [id number] Francheska Macey 2021-04-20 09:30:00 2021-04-20 09:30:00 Outpatient [facility] FRANCHESKA MAYFIELD [id number] Francheska Choudhury 2021-04-20 08:30:00 2021-04-20 08:30:00 Office Visit BHAVANI SALAS 1.2.840.114 [id number] Francheska alesha 2021-04-11 00:00:00 2021-04-11 00:00:00 Outpatient MD FRANCHESKA PARK [id number] Francheska Macey 2021-04-06 10:00:00 2021-04-06 10:00:00 Outpatient FRANCHESKA MAYFIELD [id number] Francheska Macey 2021-04-06 09:50:00 2021-04-06 09:50:00 Outpatient LAB FRANCHESKA MAYFIELD [id number] Francheska Choudhury 2021-03-29 00:00:00 2021-03-29 00:00:00 Outpatient TERRELL ROSA [id number] Francheska Macey 2021-03-14 00:00:00 2021-03-14 00:00:00 Outpatient MD FRANCHESKA PARK [id number] [facility] 2021-02-28 12:30:00 2021-02-28 13:30:00 Office Visit Terry Veras 1.2.840.114 [id number] Francheska [facility] 2021-02-22 13:00:00 2021-02-22 13:00:00 Outpatient YUNIEL MEYER [id number] Francheska [facility] 2021-02-22 10:20:00 2021-02-22 10:20:00 Outpatient GINA LITTLE [id number] Francheska [facility] 2021-02-16 14:00:00 2021-02-16 14:00:00 Outpatient TRED4Terri MAYFIELD [id number] Francheska [facility] 2021-02-16 00:00:00 2021-02-16 00:00:00 Outpatient CHERIE PATEL [id number] Francheska neva 2021-02-15 14:00:00 2021-02-15 14:00:00 Outpatient TRED4Terri MAYFIELD [id number] Francheska [facility] 2021-02-15 13:00:00 2021-02-15 13:00:00 Outpatient FRANCHESKA MAYFIELD [id number] Francheska Choudhury 2021-02-15 11:15:00 2021-02-15 11:15:00 Outpatient FRANCHESKA MAYFIELD [id number] Francheska Choudhury 2021-02-15 10:45:00 2021-02-15 10:45:00 Outpatient TRED47 FRANCHESKA MAYFIELD [id number] Francheska Kramerneva 2021-02-07 10:30:00 2021-02-07 10:45:00 Office Visit Pancho Mendez MAUREEN 1.2.840.114 [id number] [id number] [facility]ka [facility] 2021-01-31 00:00:00 2021-01-31 00:00:00 Outpatient PANCHO MENDEZ FRANCHESKA [facility] [id number] Francheska [facility] 2021-01-31 00:00:00 2021-01-31 00:00:00 Outpatient PANCHO MENDEZ FRANCHESKA [facility] [id number] Francheska [facility] 2021-01-28 16:00:00 2021-01-28 16:00:00 Outpatient LAB90 FRANCHESKA MAYFIELD [id number] Francheska [facility] 2021-01-26 09:25:00 2021-01-26 09:25:00 Outpatient LAB47 FRANCHESKA MAYFIELD [id number] Francheska [facility] 2021-01-26 08:30:00 2021-01-26 08:30:00 Office Visit CHERIE PATEL 1.2.840.114 [id number] [id number] Francheska [facility] 2021-01-18 00:00:00 2021-01-18 00:00:00 Outpatient RITOTERRY FRANCHESKA [facility] [id number] Francheska [facility] 2021-01-10 13:40:50 2021-01-10 13:55:50 Office Visit Shabbir Jammie MAUREEN 1.2.840.114 350.1.13.13 [id number] [id number] Francheska Kramerneva 2021-01-10 07:10:00 2021-01-10 07:10:00 Outpatient NKS00-OYH FRANCHESKA [facility]FIELD [id number] Francheska Choudhury 2020-11-22 13:45:00 2020-11-22 13:45:00 Outpatient LAB39 FRANCHESKA MAYFIELD [id number] Francheska Choudhury 2020-11-22 12:41:40 2020-11-22 12:56:40 Office Visit Terrell Rosa [facility] 1.2.840.114 [id number] [id number] Francheska Choudhury 2020-10-14 14:45:00 2020-10-14 14:45:00 Outpatient LAB47 FRANCHESKA MAYFIELD [id number] Francheska Choudhury 2020-10-14 14:15:00 2020-10-14 14:15:00 Outpatient GRIFFIN LAY [id number] Francheska Choudhury Results Test Description Test Time Test Comments Results Result Co mments Source Francheska KruegreGNESIUM, [id number] 12:12:00* Test Item Value Reference Range Interpretation Comme nts MAGNESIUM, SERUM (test code = 98844-1) 2.1 mg/dL 1.6-2.3 BUSTER (test code = BUSTER) [facility] results re ported in [place] [facility]. LCA Clinical Information:LCA Source of Specimen:Blood, venous*Venipnancy [id number] 12:12:00* Test Item Value Reference Range Interpretation Comme nts T4, FREE (DIRECT) (test code = 3024-7) 1.70 ng/dL 0.82-1.77 BUSTER (test code = BUSTER) [facility] results re ported in [place] [facility]. LCA Clinical Information:SRC:Blood, venous*Venipunc ture ? LCA Source of Specimen:Blood, venous*Venipnancy ChoudhuryECG- [id number] 21:49:24* Test Item Value Reference Range Interpretation Comme nts VENTRICULAR RATE (test code = 10737) BPM ATRIAL RATE (test code = 58474) BPM P-R INTERVAL (test code = 96702) 152 ms QRS DURATION (test code = 75672) 88 ms Q-T INTERVAL (test code = 02679) 392 ms QTC CALCULATION(BEZE (test code = 15925) 443 ms CALCULATED P AXIS (test code = 95755) degrees CALCULATED R AXIS (test code = 56369) degrees CALCULATED T AXIS (test code = 81284) degrees DIAGNOSIS (test code = 23490) Normal sinus rhythmAbnormal ECGWhen compared with ECG of 01-DEC-2016 11:33,No significant change was foundConfirmed by JASWANT GONZALEZ ([id number]) on 01/26/2021 3:49:22 PM Francheska Choudhury Notes Date/Time Note Provider Source 2024-09-15 13:57:18 Chief Complaint Patient presents with Follow-up c/o here for follow up on chest x-ray and ct scan results from over 4 weeks ago Piper Sanon LVN Patient's blood pressure taken in right arm with medium size cuff. Piper Sanon LVN Patient's height is 5 feet and 1.5 inches tall. Piper Sanon LVN [facility] 2024-08-11 15:05:01 Chief Complaint Patient presents with Wheezing Wheezing in lower left lung. She has been sick for the past 4-5 days. Has only taken OTC medication. Negative COVID test prior to coming into office. Marta Fritz MA [facility] 2024-06-10 10:05:25 Chief Complaint Patient presents with Follow-Up Visit Behcet's syndrome felipe 12/11/23 LUZ Manjarrez [facility] 2024-03-25 10:50:41 Chief Complaint Patient presents with Biopsy Shantel Pastrana [facility] 2024-03-25 10:30:08 Chief Complaint Patient presents with Biopsy Kellie England [email or web address] Kellie England [facility] 2024-02-11 10:10:24 Chief Complaint Patient presents with Skin Check Shantel Pastrana [facility] 2023-12-11 10:03:29 Chief Complaint Patient presents with Follow-up 6 month. Briseida Kaur LVN Briseida Kaur LVN [facility] 2023-07-24 14:28:08 Chief Complaint Patient presents with Physical fasting labs completed;mammo & bone density Piper Sanon LVN Patient's blood pressure taken in right arm with medium size cuff. Piper Sanon LVN Patient's height is 5 feet and 2 inches tall. Piper Sanon LVN [facility] 2023-06-05 10:12:45 Chief Complaint Patient presents with Follow-up 6 month. Briseida Kaur LVN T [facility] 2023-05-29 13:29:25 Chief Complaint Patient presents with Skin Lesion Right shoulder chest area red lump x 3 months Rakesh Yoder [facility]
[2024-10-18 21:28] LABS: Absolute Lymphocytes (CBC) 2.0 K/uL (0.7-4.9); Hematocrit 39.5 % (36.0-45.0); Hemoglobin 13.4 g/dL (12.0-15.0); MCH 28.1 pg (27.0-35.0); MCHC 33.8 g/dL (32.0-36.0); MCV 82.9 fL (80-100); MPV 8.4 fL (7.6-11.3); Nucleated RBC Absolute Count 0.0 (0-0); Nucleated Red Blood Cells % 0.1 % (0-0); RBC Red Blood Cell Count 4.77 M/uL (3.86-4.86); White Blood Count 12.10 thou/uL (4.3-10.9)
[2024-10-18] MEDS ORDERED: ASPIRIN 81 MG CHEWABLE TABLET ONE (21:29)
[2024-10-18] MEDS ORDERED: ONDANSETRON 4 MG/2 ML VIAL ONE (21:29)
[2024-10-18 21:37] LABS: ALT/SGPT 28 U/L (13-56); AST/SGOT 25 U/L (15-37); Albumin 3.6 g/dL (3.4-5.0); Albumin/Globulin Ratio 1.2 (1.1-1.8); Alkaline Phosphatase 90 U/L (45-117); Anion Gap 8.4 mEq/L (5.0-15.0); BUN Blood Urea Nitrogen 16 mg/dL (7-18); Globulin 3.0 g/dL (2.3-3.5); Glucose Level 119 mg/dL (74-106); Magnesium 2.3 mg/dL (1.6-2.4); NT PRO-BNP 70 pg/mL (<125); Potassium 3.4 mEq/L (3.5-5.1); Troponin High Sensitivity 3.3 pg/mL (<58.9)
[2024-10-18 21:45] LABS: Bilirubin Indirect, Calculated 0.1 mg/dL (0.2-0.8)
--- NOTE | 2024-10-18 22:15 | RAD REPORT ---
EXAMINATION: ONE VIEW CHEST XR CLINICAL INDICATION: Female, 59 years old.,DYSPNEA TECHNIQUE: Frontal chest projection is submitted. Examination is limited by patient positioning and t echnique. COMPARISON: No prior exam. FINDINGS: The lungs are well inflated and clear. No pneumothorax or sizable effusion. The heart is normal in s ize. Mediastinal contours are unremarkable. IMPRESSION: No acute intrathoracic abnormalities.
--- NOTE | 2024-10-18 22:23 | EDPHYS ---
Physician Documentation [facility] Name: Reena Garcia Age: 59 yrs Sex: Female : 1965 Arrival Date: 10/18/2024 Time: 20:20 Bed 19 Private MD: ED Physician Brandt Ace HPI: 10/18 21:54 This 59 yrs old Female presents to ER via Ambulatory with complaints of Chest Pain, kb Shortness Of Breath, Nausea. 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 States the pressure makes it hard to take a deep breath. Denies vomiting, diarrhea, fever, cough, congestion. 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 - Infectious Disease History:: Denies. - Social history:: Smoking status: Patient denies any tobacco usage or history of. ROS: 21:53 Constitutional: As per HPI kb Exam: 21:53 Constitutional: This is a well developed, well nourished patient who is awake, alert, kb and in no acute distress. Head/Face: Normocephalic, atraumatic. ENT: Moist Mucous membranes Cardiovascular: Regular rate Respiratory: Respirations even and unlabored. No increased work of breathing. Talking in full sentences Abdomen/GI: Soft, non-tender. No distention Skin: Warm, dry with normal turgor. Normal color. MS/ Extremity: Pulses equal, no cyanosis. Neurovascular intact. Full, normal range of motion. Neuro: Awake and alert, GCS 15, oriented to person, place, time, and situation. 21:53 ECG was reviewed by the Attending Physician. Vital Signs: 20:30 BP 131 / 71; Pulse 83; Resp 16 S; Pulse Ox 100% on R/A; ss12 20:33 BP 131 / 72; Pulse 88; Resp 18; Temp 98; Pulse Ox 99% ; Weight 61.23 kg; Height 5 ft. 1 me1 in. ; 21:30 BP 116 / 64; Pulse 80; Resp 16 S; Pulse Ox 98% on R/A; ss12 20:33 Body Mass Index 25.51 (61.23 kg, 154.94 cm) me1 [place] Coma Score: 20:30 Eye Response: spontaneous(4). Motor Response: obeys commands(6). Verbal Response: ss12 oriented(5). Total: 15. MDM: 20:23 Medical Screening Exam initiated kb 21:55 Differential diagnosis: acute mi, arrhythmia, PE, CAD. Data reviewed: vital signs, kb nurses notes. 21:56 Historians other than the Patient: Spouse/Significant Other: spouse. kb 22:21 Consideration of Admission/Observation Escalation of care including kb admission/observation considered. admission considered but HEART score 2, pt is feeling better and wants to go home. Independent interpretation of the following test(s) in the Emergency Department boat hand: rate is 87 beats/min, Rhythm is normal sinus rhythm, Interpretation: normal rate, normal rhythm. Counseling: I had a detailed discussion with the patient and/or guardian regarding the historical points, exam findings, and any diagnostic results supporting the discharge/admit diagnosis, lab results, radiology results, the need for outpatient follow up, a family practitioner, to return to the emergency department if symptoms worsen or persist or if there are any questions or concerns that arise at home. ED course: Discussed repeat troponin at 2300 and plan for discharge if still normal. Pt states she is feeling great and prefers to go home now. States she will follow up with PCP. 10/18 20:34 Order name: Basic Metabolic Panel; Complete Time: 21:48 kb 10/18 20:34 Order name: CBC with Diff; Complete Time: 21:34 kb 10/18 20:34 Order name: D-Dimer; Complete Time: 21:34 kb 10/18 20:34 Order name: LFT's; Complete Time: 21:48 kb 10/18 20:34 Order name: Magnesium; Complete Time: 21:48 kb 10/18 20:34 Order name: NT PRO-BNP; Complete Time: 21:48 kb 10/18 20:34 Order name: Troponin HS; Complete Time: 21:48 kb 10/18 20:34 Order name: XRAY Chest (1 view); Complete Time: 22:15 kb 10/18 20:34 Order name: Cardiac monitoring; Complete Time: 21:18 kb 10/18 20:34 Order name: EKG - Nurse/Tech; Complete Time: 21:18 kb 10/18 20:34 Order name: IV Saline Lock; Complete Time: 21:18 kb 10/18 20:34 Order name: Labs collected and sent; Complete Time: 21:18 kb 10/18 20:34 Order name: O2 Per Protocol; Complete Time: 21:18 kb 10/18 20:34 Order name: O2 Sat Monitoring; Complete Time: 21:18 kb EC:53 Rate is 83 beats/min. Rhythm is regular. QRS [place] is Normal. DC interval is normal at kb 160 msec. QRS interval is normal at 80 msec. QT interval is normal at 465 msec. Administered Medications: 21:20 Drug: Aspirin PO Chewable Tablet 324 mg PO once; 81 mg tablets x 4 Route: PO; ss12 22:31 Follow up: Response: No adverse reaction; Pain is decreased ss12 21:20 Drug: Ondansetron IVP 4 mg IVP once; over 2 minutes Route: IVP; Site: left wrist; ss12 22:31 Follow up: Response: No adverse reaction; Nausea is decreased ss12 Disposition: 10/19 02:13 I was immediately available on-site in the Emergency Department for consultation in the ms3 care of the patient. Disposition Summary: 10/18/24 22:22 Discharge Ordered Notes: Location: Home kb Condition: Stable kb Diagnosis - Chest pain, unspecified kb Followup: kb - With: Emergency Department - When: As needed - Reason: Worsening of condition Followup: kb - With: Private Physician - When: 2 - 3 days - Reason: Recheck today's complaints, Continuance of care, Re-evaluation by your physician Discharge Instructions: - Discharge Summary Sheet kb - Nonspecific Chest Pain, Adult, Oevx-bl-Apys kb Forms: - Medication Reconciliation Form kb - Antibiotic Education kb - Prescription Opioid Use kb - Patient Portal Instructions kb - Leadership Thank You Letter kb Signatures: Dispatcher [employer] [facility] Rachel Reid FNP-C FNP-Brandt Crawley DO DO ms3 Santa Roe, RN RN me1 Abdelrahman Quick RN RN ss12 Corrections: (The following items were deleted from the chart) 10/18 20:35 20:35 BASIC METABOLIC PANEL+C.LAB.BRZ ordered. EDMS EDMS 20:35 20:35 CBC+H.LAB.BRZ ordered. EDMS EDMS 20:35 20:35 D-DIMER+COAG.LAB.BRZ ordered. EDMS EDMS 20:35 20:35 HEPATIC FUNCTION+C.LAB.BRZ ordered. EDMS EDMS 20:35 20:35 MAGNESIUM+C.LAB.BRZ ordered. EDMS EDMS 20:35 20:35 PROBNP+C.LAB.BRZ ordered. EDMS EDMS 20:35 20:35 Troponin High Sensitivity+C.LAB.BRZ ordered. EDMS EDMS 20:35 20:35 Chest Single View+RAD.RAD.BRZ ordered. EDMS EDMS
--- NOTE | 2024-10-18 22:23 | ER ---
Nurse's Notes [facility] Name: Reena Garcia Age: 59 yrs Sex: Female : 1965 Arrival Date: 10/18/2024 Time: 20:20 Bed 19 Private MD: Diagnosis: Chest pain, unspecified Presentation: 10/18 20:33 Chief complaint: Patient states: chest pressure with sob and nausea that started 3 me1 hours ago. States "feels difficult to take a deep breath". Coronavirus screen: Vaccine status: Patient reports being unvaccinated. Ebola Screen: No symptoms or risks identified at this time. Initial Sepsis Screen: Does the patient meet any 2 criteria? No. Patient's initial sepsis screen is negative. Does the patient have a suspected source of infection? No. Patient's initial sepsis screen is negative. Risk Assessment: Do you want to hurt yourself or someone else? Patient reports no desire to harm self or others. Onset of symptoms was October 18, 2024 at 17:30. 20:33 Method Of Arrival: Ambulatory me1 20:33 Acuity: HARPER 3 me1 Historical: - Allergies: 20:35 Codeine; me1 20:35 PENICILLINS; me1 - PMHx: 20:35 behcets; kidney stone (behcets); Hypothyroidism; me1 - PSHx: 20:35 Total abdominal hysterectomy; me1 - Immunization history:: Adult Immunizations up to date. - Infectious Disease History:: Denies. - Social history:: Smoking status: Patient denies any tobacco usage or history of. Screenin:00 [facility] ED Fall Risk Assessment (Adult) History of falling in the last 3 months, ss12 including since admission No falls in past 3 months (0 pts) Confusion or Disorientation No (0 pts) Intoxicated or Sedated No (0 pts) Impaired Gait No (0 pts) Mobility Assist Device Used No (0 pt) Altered Elimination No (0 pt) Score/Fall Risk Level 0 - 2 = Low Risk Oriented to surroundings, Maintained a safe environment, Educated pt \\T\\ family on fall prevention, incl call for assistance when getting out of bed, Assessed \\T\\ reinforced patient's understanding of fall precautions. Abuse screen: Denies threats or abuse. Denies injuries from another. Nutritional screening: No deficits noted. Tuberculosis screening: No symptoms or risk factors identified. Assessment: 20:26 General: Appears in no apparent distress. comfortable, Behavior is calm, cooperative, ss12 quiet. Pain: Complains of pain in left side of the chest Pain does not radiate. Pain Quality of pain is described as pressure, Pain began suddenly. Neuro: No deficits noted. Neuro: Level of Consciousness is awake, alert, obeys commands, Oriented to person, place, time, situation. Cardiovascular: Reports chest pain, Patient's skin is warm and dry. Respiratory: No deficits noted. Airway is patent Respiratory effort is even, unlabored, Respiratory pattern is regular, symmetrical. GI: No deficits noted. No signs and/or symptoms were reported involving the gastrointestinal system. : No deficits noted. No signs and/or symptoms were reported regarding the genitourinary system. EENT: No deficits noted. No signs and/or symptoms were reported regarding the EENT system. Derm: No deficits noted. No signs and/or symptoms reported regarding the dermatologic system. Skin is intact, Skin is dry, Skin is pink, warm \\T\\ dry. normal. Musculoskeletal: No deficits noted. No signs and/or symptoms reported regarding the musculoskeletal system. 21:20 Reassessment: Patient appears in no apparent distress at this time. Patient and/or ss12 family updated on plan of care and expected duration. Pain level reassessed. Patient is alert, oriented x 3, equal unlabored respirations, skin warm/dry/pink. 22:24 Reassessment: Patient appears in no apparent distress at this time. Patient and/or ss12 family updated on plan of care and expected duration. Pain level reassessed. Patient is alert, oriented x 3, equal unlabored respirations, skin warm/dry/pink. Vital Signs: 20:30 BP 131 / 71; Pulse 83; Resp 16 S; Pulse Ox 100% on R/A; ss12 20:33 BP 131 / 72; Pulse 88; Resp 18; Temp 98; Pulse Ox 99% ; Weight 61.23 kg; Height 5 ft. 1 me1 in. ; 21:30 BP 116 / 64; Pulse 80; Resp 16 S; Pulse Ox 98% on R/A; ss12 20:33 Body Mass Index 25.51 (61.23 kg, 154.94 cm) me1 [place] Coma Score: 20:30 Eye Response: spontaneous(4). Motor Response: obeys commands(6). Verbal Response: ss12 oriented(5). Total: 15. ED Course: 20:22 Patient arrived in ED. im 20:22 [facility]C [facility]. may 20:22 Brandt Ace DO is Attending Physician. kb 20:30 Client placed on continuous cardiac and pulse oximetry monitoring. NIBP monitoring ss12 applied. security monitor on. Pulse ox on. 20:35 Triage completed. me1 20:35 Arm band placed on Patient placed in an exam room. me1 21:00 Inserted saline lock: 20 gauge in left antecubital area, using aseptic technique. Blood ss12 collected. Flushed with 10 mL NS. 21:11 Abdelrahman Quick, RN is Primary Nurse. ss12 21:19 Basic Metabolic Panel Sent. ss12 21:42 XRAY Chest (1 view) In Process Unspecified. EDMS 22:00 No provider procedures requiring assistance completed. Patient maintains SpO2 ss12 saturation greater than 95% on room air. 22:25 Patient has correct armband on for positive identification. Provided Education on: plan ss12 of care. 22:28 IV discontinued, intact, bleeding controlled, No redness/swelling at site. Pressure ss12 dressing applied. Administered Medications: 21:20 Drug: Aspirin PO Chewable Tablet 324 mg PO once; 81 mg tablets x 4 Route: PO; ss12 22:31 Follow up: Response: No adverse reaction; Pain is decreased ss12 21:20 Drug: Ondansetron IVP 4 mg IVP once; over 2 minutes Route: IVP; Site: left wrist; ss12 22:31 Follow up: Response: No adverse reaction; Nausea is decreased ss12 Medication: 22:25 VIS not applicable for this client. ss12 Outcome: 22:22 Discharge ordered by . kb 22:26 Discharged to home ambulatory, ss12 22:26 Condition: stable 22:26 Discharge instructions given to patient, family, Instructed on discharge instructions, follow up and referral plans. Demonstrated understanding of instructions, follow-up care, 22:31 Patient left the ED. ss12 Signatures: Dispatcher [employer] [facility] Rachel Reid FNP-C FNP-Veronica Espinosa Santa Roe RN RN [facility] Shamaila, Shamaila, RN RN ss12
[2024-10-18 23:37] VITALS: TEMP 98
[2024-10-18 23:38] VITALS: BP 116/64; O2SAT 98
== END 2024-10-18 22:31 | disposition home or self-care (01) ==
LOC: ER 20:20
DX: R07.9 Chest pain, unspecified (principal); R06.02 Shortness of breath; R11.0 Nausea
CPT/HCPCS: 93005 ×2; 85025; 80048; 36415; 83735; 85379; 80076; 84484; 83880; 71045; 96374; 99285; J2405